=== PATIENT | female | born 1980 | race Two or more races ===

== ENCOUNTER → 2016-09-28 | Outpatient (CLI) | payer BC ==
[2016-09-28 11:21] LABS: Urine RBC None Seen /hpf (0 - 4)
[2016-09-28 11:40] LABS: Basophils # (auto) 0 uL; Basophils % (auto) 0.4 % (0.0-2.0); CONDITION Y; DEFINITIVE SEE PRINTOUT; Eosinophils # (auto) 0.1 uL; Eosinophils % (auto) 1.4 % (0.0-7.0); Hematocrit 38.6 % (36.0-46.0); Hemoglobin 12.8 g/dL (12.2-16.2); Lymphocytes # (auto) 2.7 uL; Lymphocytes % (auto) 25.8 % (10.0-50.0); Mean Corpuscular Hemoglobin 25.5 pg (28.0-32.0); Mean Corpuscular Hgb Conc. 33.2 g/dL (32.0-36.0); Mean Corpuscular Volume 76.9 fL (80.0-100.0); Mean Platelet Volume 8.4 fL (7.4-10.4); Monocytes # (auto) 0.5 uL; Monocytes % (auto) 4.7 % (0.0-12.0); Neutrophils % (auto) 67.7 % (37.0-80.0); Platelet Count (auto) 425 10^3/uL (140-450); Red Cell Distribution Width 15.8 % (11.6-16.0); White Blood Cell 10.3 10^3/uL (4.4-10.8)
[2016-09-28 11:48] LABS: Albumin 3.5 g/dL (3.4-5.0); Bilirubin, Total 0.5 mg/dL (0.2-1.0); Calcium 9.2 mg/dL (8.5-10.1); Magnesium 2.4 mg/dL (1.6-2.6); Potassium 4.4 mmol/L (3.5-5.1); Total Protein 7.7 g/dL (6.4-8.2); Uric Acid 4.5 mg/dL (2.6-6.0)
[2016-09-28 12:02] LABS: Urine Bilirubin Negative (Negative); Urine Blood Negative /uL (Negative); Urine Color Yellow (Yellow); Urine Glucose Normal (Normal); Urine Ketone Negative (Negative); Urine Nitrite Negative (Negative); Urine Squamous Epithelial Cell FEW /hpf (<5); Urine Urobilinogen Normal (Negative); Urine pH 5.5 (5.0-8.0)
== END | disposition home or self-care (01) ==
LOC: LAB 09:23
DX: E11.9 Type 2 diabetes mellitus without complications (principal)
CPT/HCPCS: 36415; 80053; 80061; 81001; 82043; 82306; 82607; 83036; 83735; 84443; 84550; 85025; 87086

== ENCOUNTER → 2019-03-06 | Outpatient (CLI) | payer BC ==
[2019-03-06 10:45] LABS: Basophils # (auto) 0.1 uL; Eosinophils # (auto) 0.1 uL; Monocytes # (auto) 0.3 uL; Neutrophils # (auto) 5.1 uL; Platelet Count (auto) 439 10^3/uL (140-450)
[2019-03-06 10:47] LABS: Eosinophils % (auto) 1.1 % (0.0-7.0); Hematocrit 34.1 % (36.0-46.0); Hemoglobin 10.5 g/dL (12.2-16.2); Lymphocytes # (auto) 2.1 uL; Lymphocytes % (auto) 27.8 % (10.0-50.0); Mean Corpuscular Hemoglobin 21.3 pg (28.0-32.0); Mean Corpuscular Hgb Conc. 30.8 g/dL (32.0-36.0); Mean Corpuscular Volume 69.3 fL (80.0-100.0); Monocytes % (auto) 4.2 % (0.0-12.0); Neutrophils % (auto) 65.9 % (37.0-80.0); Red Blood Cells 4.92 10^6/uL (4.0-5.20); Red Cell Distribution Width 17.3 % (11.8-14.3); White Blood Cell 7.7 10^3/uL (4.4-10.8)
[2019-03-06 10:49] LABS: Urine Bacteria NONE SEEN /hpf (None Seen); Urine Blood Negative /uL (Negative); Urine Specific Gravity 1.011 (1.001-1.035); Urine WBC <1 /hpf (0 - 5)
[2019-03-06 11:10] LABS: Albumin 3.6 g/dL (3.4-5.0); Calcium 8.5 mg/dL (8.5-10.1); Potassium 4.1 mmol/L (3.5-5.1); Uric Acid 4.4 mg/dL (2.6-6.0)
[2019-03-06 11:14] LABS: BUN/Creatinine Ratio 15.4; Bilirubin, Total 0.4 mg/dL (0.2-1.0); Total Protein 7.3 g/dL (6.4-8.2)
[2019-03-06 11:30] LABS: Free T4 (Free Thyroxine) 1.09 ng/dL (0.89-1.76)
[2019-03-06 11:31] LABS: Free T3 2.52 pg/mL (2.3-4.2); T3 Total 1.06 ng/mL (0.60-1.81)
== END | disposition home or self-care (01) ==
LOC: LAB 10:17
DX: Z00.00 Encounter for general adult medical examination without abnormal findings (principal); N39.0 Urinary tract infection, site not specified; E11.9 Type 2 diabetes mellitus without complications; E04.1 Nontoxic single thyroid nodule; R53.1 Weakness
CPT/HCPCS: 36415; 80053; 80061; 81001; 82043; 82306; 82607; 82672; 83036; 83615; 84439; 84443; 84480; 84481; 84550; 85025

== ENCOUNTER → 2019-08-23 | Outpatient (CLI) | payer OTHER | END | disposition home or self-care (01) | LOC: LAB 09:59 | PROVIDERS: ATTEND Nurse Practitioner Family | DX: Z03.818 Encounter for observation for suspected exposure to other biological agents ruled out (principal) ==

== ENCOUNTER → 2019-08-29 | Outpatient (CLI) | payer BC ==
[2019-08-29 10:28] LABS: Basophils # (auto) 0.1 10 ^3/uL (0-0.2); Eosinophils # (auto) 0.2 10 ^3/uL (0-0.8); Eosinophils % (auto) 1.6 % (0.0-7.0); Hemoglobin 10.9 g/dL (12.2-16.2); Monocytes # (auto) 0.6 10 ^3/uL (0-1.3); Nucleated Red Blood Cells % 0.1 %
[2019-08-29 10:31] LABS: Basophils % (auto) 0.8 % (0.0-2.0); Hematocrit 35.6 % (36.0-46.0); Lymphocytes # (auto) 3.2 10 ^3/uL (0.4-5.4); Lymphocytes % (auto) 30.6 % (10.0-50.0); Mean Corpuscular Hemoglobin 20.9 pg (28.0-32.0); Mean Corpuscular Hgb Conc. 30.6 g/dL (32.0-36.0); Mean Corpuscular Volume 68.3 fL (80.0-100.0); Monocytes % (auto) 5.5 % (0.0-12.0); Neutrophils # (auto) 6.4 10 ^3/uL (1.6-8.6); Neutrophils % (auto) 61.5 % (37.0-80.0); Platelet Count (auto) 477 10^3/uL (140-450); Red Blood Cells 5.22 10^6/uL (4.0-5.20); Red Cell Distribution Width 16.9 % (11.8-14.3); White Blood Cell 10.4 10^3/uL (4.4-10.8)
[2019-08-29 10:50] LABS: BUN/Creatinine Ratio 11.8; Calcium 9.3 mg/dL (8.5-10.1); Magnesium 2.5 mg/dL (1.6-2.6); Potassium 4.7 mmol/L (3.5-5.1)
[2019-08-29 10:55] LABS: Albumin 3.6 g/dL (3.4-5.0); Bilirubin, Total 0.5 mg/dL (0.2-1.0); Phosphorus 3.9 mg/dL (2.5-4.90); Total Protein 7.9 g/dL (6.4-8.2); Uric Acid 5.1 mg/dL (2.6-6.0)
[2019-08-29 10:59] LABS: Free T4 (Free Thyroxine) 1.04 ng/dL (0.89-1.76)
[2019-08-29 11:00] LABS: Free T3 2.4 pg/mL (2.3-4.2); T3 Total 0.92 ng/mL (0.60-1.81)
[2019-08-29 11:01] LABS: Folate (Folic Acid) 20.59 ng/mL (5.38-24)
== END | disposition home or self-care (01) ==
LOC: LAB 10:07
DX: Z13.228 Encounter for screening for other metabolic disorders (principal); E11.9 Type 2 diabetes mellitus without complications; E55.9 Vitamin D deficiency, unspecified
CPT/HCPCS: 36415; 80053; 80061; 82607; 82746; 83036; 83735; 84100; 84439; 84480; 84481; 84550; 85025; 87086

== ENCOUNTER → 2019-12-22 | Outpatient (CLI) | payer OTHER | END | disposition home or self-care (01) | LOC: LAB 17:15 | PROVIDERS: ATTEND Nurse Practitioner Family | DX: U07.1 COVID-19 (principal) | CPT/HCPCS: C9803; U0003 ==

== ENCOUNTER → 2020-08-03 | Outpatient (CLI) | payer BC ==
[2020-08-03 10:16] LABS: Urine WBC None Seen /hpf (0 - 5)
[2020-08-03 10:27] LABS: Basophils # (auto) 0.1 10 ^3/uL (0-0.2); Eosinophils # (auto) 0.1 10 ^3/uL (0-0.8); Eosinophils % (auto) 1.3 % (0.0-7.0); Hematocrit 37.7 % (36.0-46.0); Hemoglobin 12.2 g/dL (12.2-16.2); Lymphocytes # (auto) 2.2 10 ^3/uL (0.4-5.4); Lymphocytes % (auto) 27.3 % (10.0-50.0); Mean Corpuscular Hemoglobin 24.4 pg (28.0-32.0); Mean Corpuscular Hgb Conc. 32.3 g/dL (32.0-36.0); Mean Corpuscular Volume 75.5 fL (80.0-100.0); Monocytes # (auto) 0.4 10 ^3/uL (0-1.3); Monocytes % (auto) 4.5 % (0.0-12.0); Neutrophils # (auto) 5.3 10 ^3/uL (1.6-8.6); Neutrophils % (auto) 65.9 % (37.0-80.0); Platelet Count (auto) 437 10^3/uL (140-450); Red Cell Distribution Width 16.4 % (11.8-14.3)
[2020-08-03 10:34] LABS: Urine Bacteria NONE SEEN /hpf (None Seen); Urine Blood Negative /uL (Negative); Urine Specific Gravity 1.016 (1.001-1.035)
[2020-08-03 10:40] LABS: INR 0.93 (0.9-1.15)
[2020-08-03 10:57] LABS: Albumin 3.6 g/dL (3.4-5.0)
[2020-08-03 11:02] LABS: BUN/Creatinine Ratio 10.4; Bilirubin, Total 0.3 mg/dL (0.2-1.0); Calcium 8.6 mg/dL (8.5-10.1); Total Protein 7.2 g/dL (6.4-8.2)
[2020-08-03 11:04] LABS: Ferritin 6.9 ng/mL (10-322)
[2020-08-03 11:05] LABS: Free T3 2.48 pg/mL (2.3-4.2); Free T4 (Free Thyroxine) 1.18 ng/dL (0.89-1.76); T3 Total 0.79 ng/mL (0.60-1.81)
[2020-08-03 11:06] LABS: Folate (Folic Acid) 18.32 ng/mL (5.38-24)
[2020-08-03 11:15] LABS: Thyroid Stimulating Hormone 3.98 uIU/mL (0.358-3.74)
[2020-08-03 11:29] LABS: % Iron Saturation 6.3 % (15-50)
== END | disposition home or self-care (01) ==
LOC: LAB 09:38
PROVIDERS: ATTEND Family Medicine
DX: Z13.228 Encounter for screening for other metabolic disorders (principal); Z13.21 Encounter for screening for nutritional disorder; Z13.29 Encounter for screening for other suspected endocrine disorder; D51.0 Vitamin B12 deficiency anemia due to intrinsic factor deficiency; R73.09 Other abnormal glucose; R53.1 Weakness; N39.0 Urinary tract infection, site not specified; Z87.440 Personal history of urinary (tract) infections; Z79.890 Hormone replacement therapy
CPT/HCPCS: 36415; 80053; 80061; 80198; 81001; 82043; 82306; 82607; 82728; 82746; 83036; 83525; 83540; 83550; 83615; 83735; 84403; 84436; 84439; 84443; 84480; 84481; 84550; 85025; 85045; 85049; 85610; 85652; 86376; 86431; 87086

== ENCOUNTER → 2020-08-13 | Outpatient (CLI) | payer BC ==
[2020-08-13 15:11] LABS: Creatinine Clearance, Urine 102.64 mL/min (75-115); Creatinine, Urine 65.3 mg/dL (30.0-125.0)
== END | disposition home or self-care (01) ==
LOC: LAB 11:23
PROVIDERS: ATTEND Family Medicine
DX: Z13.228 Encounter for screening for other metabolic disorders (principal); N39.0 Urinary tract infection, site not specified; Z13.21 Encounter for screening for nutritional disorder; D51.0 Vitamin B12 deficiency anemia due to intrinsic factor deficiency; R53.1 Weakness; Z13.29 Encounter for screening for other suspected endocrine disorder; E03.9 Hypothyroidism, unspecified; R73.09 Other abnormal glucose; Z87.441 Personal history of nephrotic syndrome
CPT/HCPCS: 82575

== ENCOUNTER → 2022-04-25 | Outpatient (CLI) | payer BC ==
[2022-04-25 10:54] LABS: Basophils # (auto) 0.1 10 ^3/uL (0-0.2); Basophils % (auto) 0.7 % (0.0-2.0); Monocytes # (auto) 0.5 10 ^3/uL (0-1.3); Neutrophils # (auto) 5.5 10 ^3/uL (1.6-8.6)
[2022-04-25 10:56] LABS: Eosinophils # (auto) 0.2 10 ^3/uL (0-0.8); Eosinophils % (auto) 1.9 % (0.0-7.0); Hematocrit 30.7 % (36.0-46.0); Hemoglobin 9.5 g/dL (12.2-16.2); Lymphocytes # (auto) 2.6 10 ^3/uL (0.4-5.4); Lymphocytes % (auto) 29.4 % (10.0-50.0); Mean Corpuscular Hemoglobin 20.2 pg (28.0-32.0); Mean Corpuscular Hgb Conc. 30.8 g/dL (32.0-36.0); Mean Corpuscular Volume 65.4 fL (80.0-100.0); Monocytes % (auto) 5.9 % (0.0-12.0); Neutrophils % (auto) 62.1 % (37.0-80.0); Red Blood Cells 4.69 10^6/uL (4.0-5.20); Red Cell Distribution Width 17.7 % (11.8-14.3); White Blood Cell 8.8 10^3/uL (4.4-10.8)
[2022-04-25 10:59] LABS: Urine Bacteria NONE SEEN /hpf (None Seen); Urine Blood Negative /uL (Negative); Urine WBC <1 /hpf (0 - 5)
[2022-04-25 11:51] LABS: Albumin 3.4 g/dL (3.4-5.0); Calcium 8.4 mg/dL (8.5-10.1); Potassium 3.8 mmol/L (3.5-5.1); Uric Acid 4.7 mg/dL (2.6-6.0)
[2022-04-25 11:54] LABS: Free T3 2.82 pg/mL (2.3-4.2); Free T4 (Free Thyroxine) 1.08 ng/dL (0.89-1.76); T3 Total 0.96 ng/mL (0.60-1.81)
[2022-04-25 11:55] LABS: % Iron Saturation 3.8 % (15-50); Folate (Folic Acid) 18.55 ng/mL (5.38-24)
[2022-04-25 11:56] LABS: BUN/Creatinine Ratio 13.2 (10.0-20.0); Bilirubin, Total 0.3 mg/dL (0.2-1.0)
== END | disposition home or self-care (01) ==
LOC: LAB 09:58
PROVIDERS: ATTEND Family Medicine
DX: Z13.220 Encounter for screening for lipoid disorders (principal); R74.02 Elevation of levels of lactic acid dehydrogenase [LDH]; E78.2 Mixed hyperlipidemia; R82.90 Unspecified abnormal findings in urine
CPT/HCPCS: 36415; 80053; 80061; 81001; 82306; 82607; 82670; 82746; 83036; 83540; 83550; 83735; 84439; 84443; 84480; 84481; 84550; 85025

== ENCOUNTER → 2023-01-08 | Outpatient (CLI) | payer BC ==
[~2023-01-08] MED LIST: IBUP-1456 PO
== END | disposition home or self-care (01) ==
LOC: LAB 07:34
PROVIDERS: ATTEND Licensed Practical Nurse
DX: N39.0 Urinary tract infection, site not specified (principal)
CPT/HCPCS: 87086

== ENCOUNTER 2023-01-09 19:08 | Emergency (ER) | payer BC ==
[~2023-01-09] VITALS: Ht 167.6 cm; Wt 95.0 kg
[2023-01-09] MEDS ORDERED: KETOROLAC TROMETH 60MG/2ML VIAL IM ONE (20:30)
[2023-01-09] MEDS ORDERED: IBUP-1456 PO (20:35)
[2023-01-09 20:44] VITALS: BP 114/84; PULSE 105; RESP 18; TEMP 97.8; O2SAT 100
== END 2023-01-09 20:37 | disposition home or self-care (01) ==
LOC: ER 19:08
DX: I83.811 Varicose veins of right lower extremity with pain (principal); E11.9 Type 2 diabetes mellitus without complications; Z79.899 Other long term (current) drug therapy
CPT/HCPCS: 93971; 96372; 99285; J1885

== ENCOUNTER → 2023-09-11 | Outpatient (CLI) | payer BC ==
[2023-09-11 10:38] LABS: Urine Bacteria FEW /hpf (None Seen); Urine Blood Negative /uL (Negative); Urine Clarity Clear (Clear); Urine Color Colorless (Yellow); Urine Protein, UAD Negative (Negative); Urine Specific Gravity 1.003 (1.001-1.035); Urine Urobilinogen Normal (Negative); Urine WBC <1 /hpf (0 - 5); Urine pH 5.5 (5.0-9.0)
[2023-09-11 10:44] LABS: Alanine Aminotransferase 12 U/L (7-40); Albumin 4.5 g/dL (3.2-4.8); Alkaline Phosphatase 60 U/L (46-116); Anion Gap 10 (5-15); Aspartate Aminotransferase < 8 U/L (13-40); BUN/Creatinine Ratio 11.4 (10.0-20.0); Bilirubin, Total 0.5 mg/dL (0.2-1.0); Blood Urea Nitrogen 10 mg/dL (9-23); Calcium 9.7 mg/dL (8.7-10.4); Carbon Dioxide 24 mmol/L (20-30); Chloride 103 mmol/L (98-107); Cholesterol 166 mg/dL (< 200); Glucose 178 mg/dL (74-106); HDL Cholesterol 35 mg/dL (40-59); LDL Cholesterol 93 mg/dL (< 100); Magnesium 2.1 mg/dL (1.6-2.6); Potassium 4.4 mmol/L (3.5-5.1); Sodium 137 mmol/L (136-145); Total Protein 7.4 g/dL (5.7-8.2); Triglycerides 228 mg/dL (< 150)
[2023-09-11 11:04] LABS: % Iron Saturation 5.8 % (15-50); Uric Acid 4.8 mg/dL (3.1-7.8)
== END | disposition home or self-care (01) ==
LOC: LAB 09:43
PROVIDERS: ATTEND Family Medicine
DX: E11.9 Type 2 diabetes mellitus without complications (principal); E78.2 Mixed hyperlipidemia; K76.0 Fatty (change of) liver, not elsewhere classified; R53.82 Chronic fatigue, unspecified
CPT/HCPCS: 36415; 80053; 80061; 81001; 82306; 82607; 83036; 83540; 83550; 83735; 84443; 84550; 86038; 87086

== ENCOUNTER → 2024-12-23 | Outpatient (CLI) | payer BC | END | disposition home or self-care (01) | LOC: LAB 12:33 | PROVIDERS: ATTEND Obstetrics & Gynecology | DX: Z01.812 Encounter for preprocedural laboratory examination (principal); N84.1 Polyp of cervix uteri ==